=== PATIENT | male | born 1995 | race Caucasian/White ===

== ENCOUNTER 2018-01-09 11:09 | Emergency (ER) | payer OTHER ==
[2018-01-09] MEDS ORDERED: NS 1,000 ML IV ONE ×2 (11:12→12:17)
--- NOTE | 2018-01-09 11:12 | EDPHY ---
HPI/HX/ROS/PE/MDM - Data Points Imaging: Discussed imaging studies w/ banquet server on call Radiologist, I viewed and interpreted images myself Narrative: CHIEF COMPLAINT: Seizure, AMS HPI: The patient is a 22 y/o male arriving via EMS after a witnessed 30-second tonic-clonic seizure this morning and is now altered. His roommates reported to EMS that he did several lines of cocaine, most recently at 04:00 this morning, but no more than he usually takes. On EMS arrival he was somnolent and disoriented. He is now able to follow some basic commands and can state his name. He complains of "achy" head pain and began vomiting upon arrival in the ED. No seizure history per roommates. REVIEW OF SYSTEMS: Aside from elements discussed in the HPI, a comprehensive 10-point review of systems was reviewed and is negative. PMH: Ambien, anxiety SOCIAL HISTORY: Normally does cocaine per roommates, lives in [place] the [place] with roommates PHYSICAL EXAM: General:Patient is somnolent but following commands, in no acute distress. Vomited upon transitioning from EMS bed. ENT:Eyes are normal to inspection. ENT inspection normal. No tongue lac. Neck: Normal inspection. Full range of motion. Respiratory:No respiratory distress. Breath sounds normal bilaterally. Cardiovascular: Tachycardic regular rate and rhythm. Strong peripheral pulses. Normal cap refill. Abdomen:The abdomen is nontender to palpation. There are no peritoneal signs. Back: Normal to inspection. No tenderness to palpation. Skin: Normal color. No rash. Warm and dry. Extremities: Normal appearance. Full range of motion. Neuro: Oriented x1. Normal motor function. Normal sensory function. (Fernando Shields) ED Course: 2:00 p.m.-I assumed care of this patient only to check the repeat chemistry panel. The repeat chemistry panel is unremarkable and improved after IV hydration. Discussed with the patient that this seizure was most likely secondary to cocaine use. Strongly encouraged him to stop using cocaine. Neurologic exam is normal on discharge. He understands that he cannot drive until he is cleared by a neurologist. (Daria Meyer) This is a 22 y/o male with cocaine abuse history who presents after a 30-second tonic-clonic seizure witnessed by his roommates this morning. He is A&Ox1, somnolent but able to follow commands, and complains of a mild headache on assessment. No focal deficit or visible trauma. Plan for IV, labs, EKG, head CT. The 12 lead EKG was interpreted by myself. See hard copy and/or "tracemaster" electronic copy for interpretation. Head CT negative. Patient is now completely alert and oriented. Normal neuro exam. He states, "too much cocaine, man." Elevated WBC, platelets, and sodium likely due to dehydration. Plan for IV fluids and recheck. 1400: Patient care signed out to Dr. Meyer at shift change pending lab recheck. (Fernando Shields) - Data Points Imaging Results: Imaging Impressions Head CT 01/09/18 11:12 Impression: No acute intracranial findings. Findings discussed with Fernando Shields MD 01/09/2018 at 11:45. Laboratory Results: Laboratory Results 01/09/18 11:30 01/09/18 13:25 01/09/18 01/09/18 01/09/18 13:25 11:30 11:30 WBC 18.47 10^3/uL H 10^3/uL (3.80-9.50) RBC 5.89 10^6/uL 10^6/uL (4.40-6.38) Hgb 17.0 g/dL g/dL (13.7-17.5) Hct 53.3 % H % (40.0-51.0) MCV 90.5 fL fL (81.5-99.8) MCH 28.9 pg pg (27.9-34.1) MCHC 31.9 g/dL L g/dL (32.4-36.7) RDW 13.3 % % (11.5-15.2) Plt Count 643 10^3/uL H 10^3/uL (150-400) MPV 9.7 fL fL (8.7-11.7) Neut % (Auto) Not Reported Lymph % (Auto) Not Reported [place] % (Auto) Not Reported Eos % (Auto) Not Reported Baso % (Auto) Not Reported Nucleat RBC Rel Count 0.0 % % (0.0-0.2) Absolute Neuts (auto) Not Reported Absolute Lymphs (auto) Not Reported Absolute Monos (auto) Not Reported Absolute Eos (auto) Not Reported Absolute Basos (auto) Not Reported Absolute Nucleated RBC 0.00 10^3/uL 10^3/uL (0-0.01) Immature Gran % Not Reported Seg Neutrophils % 27 % % Band Neutrophils % 1 % % Lymphocytes % 61 % % Monocytes % 10 % % Eosinophils % 1 % % Immature Gran # Not Reported Absolute Seg Neuts 4.99 10^/uL 10^/uL (1.70-6.50) Absolute Band Neuts 0.18 10^3/uL 10^3/uL (0.00-0.70) Absolute Lymphocytes 11.27 10^3/uL H 10^3/uL (1.00-3.00) Absolute Monocytes 1.85 10^3/uL H 10^3/uL (0.30-0.80) Absolute Eosinophils 0.18 10^3/uL 10^3/uL (0.03-0.40) Atypical Lymphocytes 1+ H Platelet Estimate INCREASED H (ADEQ) Large Platelets PRESENT H Giant Platelets PRESENT H Polychromasia 1+ H Oval Macrocytes 1+ H Smear Review By Pending Sodium 143 mEq/L mEq/L 150 mEq/L H mEq/L (135-145) (135-145) Potassium 3.9 mEq/L mEq/L 4.7 mEq/L mEq/L (3.5-5.2) (3.5-5.2) Chloride 110 mEq/L mEq/L 106 mEq/L mEq/L (97-110) (97-110) Carbon Dioxide 21 mEq/l L mEq/l Pending (22-31) Anion Gap 12 mEq/L mEq/L mEq/L mEq/L (8-16) (8-16) BUN 13 mg/dL mg/dL 11 mg/dL mg/dL (7-23) (7-23) Creatinine 0.9 mg/dL mg/dL 1.2 mg/dL mg/dL (0.7-1.3) (0.7-1.3) Estimated GFR > 60 > 60 Glucose 77 mg/dL mg/dL 93 mg/dL mg/dL (70-100) (70-100) Calcium 8.7 mg/dL D mg/dL 10.7 mg/dL H mg/dL (8.5-10.4) (8.5-10.4) Phosphorus 6.6 mg/dL H mg/dL (2.5-4.5) Troponin I < 0.012 ng/mL ng/mL (0.000-0.034) Medications Given: Discontinued Medications Sodium Chloride (Ns) 1,000 mls @ 0 mls/hr IV EDNOW ONE; Wide Open PRN Reason: Protocol Stop: 01/09/18 11:13 Last Admin: 01/09/18 11:41 Dose: 1,000 mls Sodium Chloride (Ns) 1,000 mls @ 0 mls/hr IV EDNOW ONE; Wide Open PRN Reason: Protocol Stop: 01/09/18 12:18 Last Admin: 01/09/18 13:23 Dose: 1,000 mls Ondansetron HCl (Zofran) 4 mg IVP EDNOW ONE Stop: 01/09/18 11:29 Last Admin: 01/09/18 11:48 Dose: 4 mg General Time Seen by Provider: 01/09/18 11:10 Initial Vital Signs: Initial Vital Signs Temperature (C) 36.4 C 01/09/18 11:31 Heart Rate 121 H 01/09/18 11:31 Respiratory Rate 14 01/09/18 11:31 Blood Pressure 158/93 H 01/09/18 11:31 O2 Sat (%) 93 01/09/18 11:31 O2 Delivery Mode Room Air Allergies/Adverse Reactions: cefcil Allergy (Uncoded 12/22/14 14:45) Home Medications: Medication Instructions Recorded Hydrocodone/APAP 5/325 [[place] 1 - 2 tab PO Q4 PRN #10 tab 01/20/16 5/325 (RX)] Departure - Departure Disposition: Home, Routine, Self-Care Clinical Impression: Seizure, Cocaine abuse Condition: Good Instructions: Cocaine Abuse (ED), New-Onset Seizure in Adults (ED) Additional Instructions: 1. Avoid abuse of illicit drugs. 2. Follow up with neurologist next week. I recommend calling today to schedule this. 3. Do not drive or participate in any activities that could put you or others at risk in case of a recurrent seizure until cleared by neurologist. 4. Return for recurrent seizure or other worsening of condition. Referrals: Jak Hopkins, [Medical Doctor] - As per Instructions [facility] [Clinic] - As per Instructions [facility] [Outside] - As per Instructions Report Scribed for: Fernando Shields Report Scribed by: Shikha Nielsen Date of Report: 01/09/18 Time of Report: 11:13 Physician Review and Approval Statement: Portions of this note were transcribed by an ED scribe. I personally performed the history, physical exam, and medical decision making; and confirm the accuracy of the information in the transcribed note.
--- NOTE | 2018-01-09 11:24 | CPEKG ---
Heart Rate: 108 RR Interval: 556 P-R Interval: 124 QRSD Interval: 104 QT Interval: 352 QTC Interval: 472 P [place]: 83 QRS [place]: 84 T Wave [place]: 17 EKG Severity - ABNORMAL ECG - EKG Impression: SINUS TACHYCARDIA EKG Impression: PROBABLE LEFT VENTRICULAR HYPERTROPHY EKG Impression: INFERIOR Q WAVES, PROBABLY NORMAL VARIATION EKG Impression: BORDERLINE PROLONGED QT INTERVAL Electronically Signed By: Fernando Shields 10-Jan-2018 14:25:49
[2018-01-09] MEDS ORDERED: ONDANSETRON 4 MG/2 ML VIAL IVP ONE (11:28)
[2018-01-09 11:42] LABS: PLATELET COUNT 643 10^3/uL (150-400)
[2018-01-09 14:43] VITALS: BP 142/75
== END 2018-01-09 14:42 | disposition home or self-care (01) ==
LOC: EDUNIT#
DX: R56.9 Unspecified convulsions (principal); F14.10 Cocaine abuse, uncomplicated; E86.9 Volume depletion, unspecified
CPT/HCPCS: 96374; J2405